=== PATIENT | female | born 1970 | race Caucasian/White ===

== ENCOUNTER 2017-06-25 05:51 | Day surgery (SDC) | payer OTHER ==
[2017-06-25 06:15] LABS: ADD MAN DIFF? NO
[2017-06-25 06:24] LABS: WHITE BLOOD COUNT 7.1 10^3/ul (4.8-10.8)
[2017-06-25 06:24] LABS: BASOPHILS % 0.4 % (0.0-2.0); EOSINOPHILS # 0.2 10^3/ul (0.0-0.5); EOSINOPHILS % 2.7 % (0.0-7.0); HEMATOCRIT 37.3 % (37.0-47.0); HEMOGLOBIN 13.4 g/dl (12.0-16.0); LYMPHOCYTES # 2.8 10^3/ul (0.8-2.9); LYMPHOCYTES % 39.7 % (15.0-51.0); MEAN CORPUSCULAR HEMOGLOBIN 32.1 pg (29.0-33.0); MEAN CORPUSCULAR HGB CONC 35.9 g/dl (32.0-37.0); MEAN CORPUSCULAR VOLUME 89.4 fl (82.0-101.0); MEAN PLATELET VOLUME 9.9 fl (7.4-10.4); MONOCYTE # 0.4 10^3/ul (0.3-0.9); MONOCYTES % 5.9 % (0.0-11.0); NEUTROPHIL # 3.6 10^3/ul (1.6-7.5); PLATELET COUNT 218 10^3/UL (140-415); RED BLOOD COUNT 4.17 10^6/ul (4.20-5.40)
[2017-06-25 07:01] LABS: INR 0.93; PROTIME 12.5 Sec (11.9-14.9)
[2017-06-25 07:03] LABS: ANION GAP 15 (8-16); CARBON DIOXIDE 26 mmol/L (21-31); CHLORIDE 108 mmol/L (97-110); GLUCOSE 122 mg/dl (70-220)
[2017-06-25 07:14] LABS: BLOOD UREA NITROGEN 14 mg/dl (7-20); CREATININE 0.55 mg/dl (0.44-1.00); POTASSIUM 3.7 mmol/L (3.5-5.1); SODIUM 145 mmol/L (135-144)
[2017-06-25] MEDS ORDERED: VERAPAMIL 5 MG INJ (07:27)
[2017-06-25] MEDS ORDERED: MIDAZOLAM 1 MG/ML 2 ML INJ ×2 (07:27→07:57)
[2017-06-25] MEDS ORDERED: NITROGLYCERIN (IC) 100 MCG/ML INJ (07:27)
[2017-06-25] MEDS ORDERED: HEPARIN 1000 UNITS/ML 10 ML INJ (07:27)
[2017-06-25] MEDS ORDERED: LIDOCAINE 1% (MDV) 20 ML INJ (07:27)
[2017-06-25] MEDS ORDERED: IODIXANOL LOCM 100 ML BTL (07:27)
[2017-06-25] MEDS ORDERED: FENTAnyl 50 MCG/ML VIAL (07:27)
[2017-06-25] MEDS: SOD CHLORIDE 0.9% 1,000 ML IV (07:57)
== END 2017-06-25 11:18 | disposition home or self-care (01) ==
LOC: SDS 05:51
DX: R07.9 Chest pain, unspecified (principal); E11.9 Type 2 diabetes mellitus without complications
CPT/HCPCS: 80048; 82962; 85025; 85610; 93005; 93458

== ENCOUNTER 2018-06-04 09:05 | Day surgery (SDC) | payer OTHER ==
[2018-06-04] MEDS ORDERED: PROPOFOL 40 ML (10:44)
[2018-06-04] MEDS ORDERED: LIDOCAINE 100 MG SYRINGE (10:44)
[2018-06-04] MEDS ORDERED: FENTAnyl 50 MCG/ML VIAL (10:44)
== END 2018-06-04 13:54 | disposition home or self-care (01) ==
LOC: GIL 09:05
DX: K29.50 Unspecified chronic gastritis without bleeding (principal); K21.9 Gastro-esophageal reflux disease without esophagitis; K64.8 Other hemorrhoids; I10 Essential (primary) hypertension; E11.9 Type 2 diabetes mellitus without complications; E66.9 Obesity, unspecified; Z68.38 Body mass index [BMI] 38.0-38.9, adult
CPT/HCPCS: 43239; 82962; 88305; 88312

== ENCOUNTER 2018-09-06 21:31 | Emergency (ER) | payer OTHER ==
[2018-09-07] MEDS: METOCLOPRAMIDE 10 MG TAB PO (02:17)
[2018-09-07] MEDS: MECLIZINE 12.5 MG TAB PO (02:18)
[2018-09-07] MEDS: HYDROCODONE/APAP (10/325) TAB PO (02:18)
== END 2018-09-07 02:26 | disposition home or self-care (01) ==
LOC: FTE 21:31
DX: H60.90 Unspecified otitis externa, unspecified ear (principal); I10 Essential (primary) hypertension; Z79.82 Long term (current) use of aspirin; Z79.84 Long term (current) use of oral hypoglycemic drugs
CPT/HCPCS: 99283; Z7502